=== PATIENT | male | born 1980 | race Caucasian/White ===

== ENCOUNTER 2021-04-14 15:34 | Inpatient (IN) | payer OTHER ==
[2021-04-14 16:56] VITALS: BMI 32.7
[2021-04-14] MEDS ORDERED: NALOXONE (NARCAN) HCL 4 MG/0.1 ML SPRAY NS PRN (18:26)
[2021-04-14] MEDS ORDERED: MAG HYDROX/AL HYDROX/SIMETH 30 ML UNIT-DOSE CUP PO PRN (18:26)
[2021-04-14] MEDS ORDERED: MAGNESIUM HYDROX 2400MG/30ML ORAL SUSPENSION 30 ML CUP PO PRN (18:26)
[2021-04-14] MEDS ORDERED: IBUPROFEN 400 MG TABLET (FP) PO PRN (18:26)
[2021-04-14] MEDS ORDERED: ACETAMINOPHEN 325 MG TABLET (FP) PO PRN ×2 (18:26)
[2021-04-14] MEDS ORDERED: MAGNESIUM CITRATE 300 ML BOTTLE PO PRN (18:26)
[2021-04-14] MEDS ORDERED: MENTHOL/PHENOL 1 EACH UD MM PRN (18:26)
[2021-04-14] MEDS ORDERED: ONDANSETRON *ODT* 4 MG TABLET SL PRN (18:26)
[2021-04-14] MEDS ORDERED: diazePAM 5 MG TABLET PO PRN (18:26)
[2021-04-14] MEDS ORDERED: BISMUTH SUBSALICYLATE 524 MG/30 ML PO PRN (18:26)
[2021-04-14] MEDS ORDERED: METHOCARBAMOL 500 MG TABLET PO PRN (18:26)
[2021-04-14] MEDS ORDERED: methaDONE HCL 10 MG TABLET PO ONE (18:33)
[2021-04-14] MEDS ORDERED: methaDONE HCL 10 MG TABLET ONE (21:36)
[2021-04-14] MEDS ORDERED: methaDONE HCL 40 MG DISPERSABLE TABLET ONE (21:36)
[2021-04-14] MEDS: GABAPENTIN 400 MG CAPSULE PO SCH (21:45)
[2021-04-14] MEDS ORDERED: QUEtiapine FUMARATE 50 MG TABLET PO ONE (22:00)
[2021-04-15] MEDS ORDERED: methaDONE HCL 10 MG TABLET ONE (05:40)
[2021-04-15] MEDS ORDERED: methaDONE HCL 40 MG DISPERSABLE TABLET ONE (05:41)
[2021-04-15] MEDS: GABAPENTIN 400 MG CAPSULE PO SCH ×3 (05:54→22:27)
[2021-04-15] MEDS ORDERED: methaDONE HCL 10 MG TABLET PO SCH (06:00)
[2021-04-15 10:19] LABS: HEMATOCRIT 37.7 % (35.4-49); HEMOGLOBIN 12.7 GM/dL (11.7-16.9); MCH 30.9 pg (25.7-33.7); MCHC 33.6 g/dl (32.0-35.9); MEAN CELL VOLUME 91.8 fl (80-96); MEAN PLT VOLUME 8.6 fl (7.5-11.1); PLATELET COUNT 190 10^3/uL (134-434); RBC 4.11 M/mm3 (4.00-5.60); RDW 14.1 % (11.9-15.9); WHITE BLOOD COUNT 7.7 K/mm3 (4.0-10.0)
[2021-04-15] MEDS: cloNIDine HCL 0.1 MG TABLET PO SCH ×2 (10:39→22:27)
[2021-04-15] MEDS: PRENATAL VITAMINS W/ FOLIC ACID TABLET (FP) PO SCH (10:41)
[2021-04-15] MEDS ORDERED: FLU VACC QS2021-22(6MOS UP)/PF 60 MCG/0.5 ML SYRINGE IM ONE (12:00)
[2021-04-15 12:25] LABS: HIV INTERPRETATION NEGATIVE (NEGATIVE)
[2021-04-15 12:31] LABS: CALCIUM 8.8 mg/dL (8.5-10.1)
[2021-04-15 12:32] LABS: ALBUMIN 3.4 g/dl (3.4-5.0); BLOOD UREA NITROGEN 12.2 mg/dL (7-18)
[2021-04-15 12:35] LABS: BILIRUBIN,TOTAL 0.2 mg/dL (0.2-1); TOT PROT 7.3 g/dl (6.4-8.2)
[2021-04-15] MEDS: diazePAM 5 MG TABLET PO SCH ×4 (13:09→22:27)
[2021-04-15] MEDS: hydrOXYzine PAMOATE 25 MG CAPSULE (FP) PO SCH ×5 (13:43→22:27)
[2021-04-15] MEDS: THIAMINE HCL 100 MG TABLET (FP) PO SCH ×2 (13:44→22:27)
[2021-04-15] MEDS: MELATONIN 5 MG TABLETS PO SCH ×2 (13:45→22:27)
[2021-04-15] MEDS ORDERED: COLLOIDAL OATMEAL 1 BAR EACH TP PRN (15:27)
[2021-04-15] MEDS: NICOTINE 10 MG CARTRIDGE (INHALER) IH PRN (19:06)
[2021-04-15] MEDS: QUEtiapine FUMARATE 100 MG TABLET (FP) PO SCH (22:27)
[2021-04-16] MEDS: hydrOXYzine PAMOATE 25 MG CAPSULE (FP) PO SCH ×5 (06:51→22:34)
[2021-04-16] MEDS: GABAPENTIN 400 MG CAPSULE PO SCH ×3 (06:51→22:34)
[2021-04-16] MEDS: diazePAM 5 MG TABLET PO SCH ×3 (06:52→22:34)
[2021-04-16] MEDS ORDERED: methaDONE HCL 10 MG TABLET ONE (09:01)
[2021-04-16] MEDS ORDERED: methaDONE HCL 40 MG DISPERSABLE TABLET ONE (09:02)
[2021-04-16] MEDS: QUEtiapine FUMARATE 100 MG TABLET (FP) PO SCH ×2 (10:19→22:34)
[2021-04-16] MEDS: PRENATAL VITAMINS W/ FOLIC ACID TABLET (FP) PO SCH (10:19)
[2021-04-16] MEDS: NICOTINE 10 MG CARTRIDGE (INHALER) IH PRN ×2 (10:49→22:38)
[2021-04-16] MEDS: cloNIDine HCL 0.1 MG TABLET PO SCH ×2 (12:27→22:34)
[2021-04-16] MEDS: MELATONIN 5 MG TABLETS PO SCH (22:34)
[2021-04-16] MEDS: THIAMINE HCL 100 MG TABLET (FP) PO SCH (22:34)
[2021-04-17] MEDS: GABAPENTIN 400 MG CAPSULE PO SCH ×3 (06:10→22:46)
[2021-04-17] MEDS: hydrOXYzine PAMOATE 25 MG CAPSULE (FP) PO SCH ×5 (06:10→22:46)
[2021-04-17] MEDS: diazePAM 5 MG TABLET PO SCH ×2 (06:10→17:30)
[2021-04-17] MEDS ORDERED: methaDONE HCL 10 MG TABLET ONE (08:57)
[2021-04-17] MEDS ORDERED: methaDONE HCL 40 MG DISPERSABLE TABLET ONE (08:57)
[2021-04-17] MEDS: QUEtiapine FUMARATE 100 MG TABLET (FP) PO SCH ×2 (10:17→22:46)
[2021-04-17] MEDS: PRENATAL VITAMINS W/ FOLIC ACID TABLET (FP) PO SCH (10:18)
[2021-04-17] MEDS: cloNIDine HCL 0.1 MG TABLET PO SCH ×2 (10:18→22:58)
[2021-04-17] MEDS: NICOTINE 10 MG CARTRIDGE (INHALER) IH PRN (14:21)
[2021-04-17] MEDS: MELATONIN 5 MG TABLETS PO SCH (22:46)
[2021-04-17] MEDS: THIAMINE HCL 100 MG TABLET (FP) PO SCH (22:46)
[2021-04-18] MEDS ORDERED: diazePAM 5 MG TABLET PO ONE (06:00)
[2021-04-18] MEDS: GABAPENTIN 400 MG CAPSULE PO SCH (06:22)
[2021-04-18] MEDS: hydrOXYzine PAMOATE 25 MG CAPSULE (FP) PO SCH ×2 (06:22→10:25)
[2021-04-18] MEDS ORDERED: methaDONE HCL 10 MG TABLET ONE (09:16)
[2021-04-18] MEDS ORDERED: methaDONE HCL 40 MG DISPERSABLE TABLET ONE (09:16)
[2021-04-18 09:19] VITALS: BP 107/53; PULSE 98; TEMP 97.4
[2021-04-18] MEDS: cloNIDine HCL 0.1 MG TABLET PO SCH (10:23)
[2021-04-18] MEDS: PRENATAL VITAMINS W/ FOLIC ACID TABLET (FP) PO SCH (10:23)
[2021-04-18] MEDS: QUEtiapine FUMARATE 100 MG TABLET (FP) PO SCH (10:23)
== END 2021-04-18 10:28 | disposition home or self-care (01) | DRG 897 ==
LOC: YASAS 15:34 → Y3N 04-15 11:35
PROVIDERS: ADMIT Allergy & Immunology; ATTEND Allergy & Immunology
PROC: HZ2ZZZZ Detoxification Services for Substance Abuse Treatment (ICD-10-PCS; principal; 2021-04-15)
DX: F10.230 Alcohol dependence with withdrawal, uncomplicated (principal); F11.20 Opioid dependence, uncomplicated; F13.230 Sedative, hypnotic or anxiolytic dependence with withdrawal, uncomplicated; F17.210 Nicotine dependence, cigarettes, uncomplicated; F43.10 Post-traumatic stress disorder, unspecified; F25.9 Schizoaffective disorder, unspecified; F19.24 Other psychoactive substance dependence with psychoactive substance-induced mood disorder; I10 Essential (primary) hypertension; G47.00 Insomnia, unspecified; B18.2 Chronic viral hepatitis C; G62.9 Polyneuropathy, unspecified; K21.9 Gastro-esophageal reflux disease without esophagitis; M54.50 Low back pain, unspecified; G89.29 Other chronic pain; Z56.0 Unemployment, unspecified
CPT/HCPCS: 36415; 80053; 85027; 86780; 87389; 90686; C9803; G0008; J0735; U0003; U0005

== ENCOUNTER 2021-08-05 18:13 | Inpatient (IN) | payer BC, OTHER ==
[2021-08-05 20:17] VITALS: BMI 30.2
[2021-08-05] MEDS ORDERED: DICYCLOMINE HCL 10 MG CAPSULE PO PRN (20:54)
[2021-08-05] MEDS ORDERED: ONDANSETRON *ODT* 4 MG TABLET SL PRN (20:54)
[2021-08-05] MEDS ORDERED: MELATONIN 5 MG TABLETS PO PRN (20:54)
[2021-08-05] MEDS ORDERED: ACETAMINOPHEN 325 MG TABLET (FP) PO PRN ×2 (20:54)
[2021-08-05] MEDS ORDERED: BISMUTH SUBSALICYLATE 524 MG/30 ML PO PRN (20:54)
[2021-08-05] MEDS ORDERED: MENTHOL/PHENOL 1 EACH UD MM PRN (20:54)
[2021-08-05] MEDS ORDERED: P-EPHED 60MG/TRIPROLIDI 2.5MG TABLET PO PRN (20:54)
[2021-08-05] MEDS ORDERED: IBUPROFEN 400 MG TABLET (FP) PO PRN (20:54)
[2021-08-05] MEDS ORDERED: MAGNESIUM HYDROX 2400MG/30ML ORAL SUSPENSION 30 ML CUP PO PRN (20:54)
[2021-08-05] MEDS ORDERED: MAG HYDROX/AL HYDROX/SIMETH 30 ML UNIT-DOSE CUP PO PRN (20:54)
[2021-08-05] MEDS ORDERED: MAGNESIUM CITRATE 300 ML BOTTLE PO PRN (20:54)
[2021-08-06] MEDS: THIAMINE HCL 100 MG TABLET (FP) PO SCH ×2 (04:16→22:53)
[2021-08-06] MEDS ORDERED: methaDONE HCL 40 MG DISPERSABLE TABLET PO SCH (12:30)
[2021-08-06] MEDS ORDERED: chlordiazePOXIDE HCL 25 MG CAPSULE PO PRN (12:31)
[2021-08-06] MEDS ORDERED: methaDONE HCL 10 MG TABLET ONE (12:49)
[2021-08-06] MEDS ORDERED: methaDONE HCL 40 MG DISPERSABLE TABLET ONE (12:50)
[2021-08-06] MEDS: chlordiazePOXIDE HCL 25 MG CAPSULE PO SCH ×3 (12:52→22:53)
[2021-08-06] MEDS: PRENATAL VITAMINS W/ FOLIC ACID TABLET (FP) PO SCH (12:53)
[2021-08-06 13:55] LABS: HEMATOCRIT 34.1 % (35.4-49); HEMOGLOBIN 11.4 GM/dL (11.7-16.9); MCH 30.1 pg (25.7-33.7); MCHC 33.4 g/dl (32.0-35.9); MEAN PLT VOLUME 9.3 fl (7.5-11.1); PLATELET COUNT 163 10^3/uL (134-434); RBC 3.79 M/mm3 (4.00-5.60); RDW 14.8 % (11.9-15.9); WHITE BLOOD COUNT 7.5 K/mm3 (4.0-10.0)
[2021-08-06 14:44] LABS: ALBUMIN 3.6 g/dl (3.4-5.0); BILIRUBIN,TOTAL 0.4 mg/dL (0.2-1); BLOOD UREA NITROGEN 16.1 mg/dL (7-18); CALCIUM 8.9 mg/dL (8.5-10.1); TOT PROT 6.7 g/dl (6.4-8.2)
[2021-08-06] MEDS: METHOCARBAMOL 500 MG TABLET PO PRN (15:51)
[2021-08-06] MEDS ORDERED: NICOTINE 10 MG CARTRIDGE (INHALER) IH PRN (15:51)
[2021-08-06] MEDS: hydrOXYzine PAMOATE 25 MG CAPSULE (FP) PO PRN (15:51)
[2021-08-06] MEDS ORDERED: QUEtiapine FUMARATE 50 MG TABLET PO ONE (18:21)
[2021-08-07] MEDS ORDERED: methaDONE HCL 40 MG DISPERSABLE TABLET ONE (04:38)
[2021-08-07] MEDS ORDERED: methaDONE HCL 10 MG TABLET ONE (04:38)
[2021-08-07] MEDS ORDERED: chlordiazePOXIDE HCL 10 MG CAPSULE PO SCH (05:00)
[2021-08-07] MEDS: chlordiazePOXIDE HCL 25 MG CAPSULE PO SCH (07:00)
[2021-08-07] MEDS: PRENATAL VITAMINS W/ FOLIC ACID TABLET (FP) PO SCH (10:46)
[2021-08-07] MEDS: chlordiazePOXIDE HCL 10 MG CAPSULE PO SCH ×3 (10:50→23:17)
[2021-08-07] MEDS: cloNIDine HCL 0.1 MG TABLET PO PRN (19:30)
[2021-08-07] MEDS: THIAMINE HCL 100 MG TABLET (FP) PO SCH (23:16)
[2021-08-07] MEDS: QUEtiapine FUMARATE 100 MG TABLET (FP) PO SCH (23:16)
[2021-08-08] MEDS: chlordiazePOXIDE HCL 10 MG CAPSULE PO SCH ×2 (05:46→17:50)
[2021-08-08] MEDS ORDERED: methaDONE HCL 40 MG DISPERSABLE TABLET ONE (09:42)
[2021-08-08] MEDS ORDERED: methaDONE HCL 10 MG TABLET ONE (09:42)
[2021-08-08] MEDS: PRENATAL VITAMINS W/ FOLIC ACID TABLET (FP) PO SCH (10:10)
[2021-08-08] MEDS: cloNIDine HCL 0.1 MG TABLET PO PRN ×2 (10:11→17:52)
[2021-08-08] MEDS: hydrOXYzine PAMOATE 25 MG CAPSULE (FP) PO PRN ×2 (17:51→22:35)
[2021-08-08] MEDS: METHOCARBAMOL 500 MG TABLET PO PRN (17:51)
[2021-08-08] MEDS: QUEtiapine FUMARATE 100 MG TABLET (FP) PO SCH (22:33)
[2021-08-08] MEDS: THIAMINE HCL 100 MG TABLET (FP) PO SCH (23:16)
[2021-08-09] MEDS ORDERED: chlordiazePOXIDE HCL 10 MG CAPSULE PO PRN
[2021-08-09] MEDS ORDERED: chlordiazePOXIDE HCL 10 MG CAPSULE PO ONE (05:00)
[2021-08-09] MEDS: cloNIDine HCL 0.1 MG TABLET PO PRN (06:11)
[2021-08-09] MEDS: METHOCARBAMOL 500 MG TABLET PO PRN (06:12)
[2021-08-09 09:01] VITALS: BP 147/92; PULSE 78; TEMP 97.5
[2021-08-09] MEDS ORDERED: methaDONE HCL 40 MG DISPERSABLE TABLET ONE (09:35)
[2021-08-09] MEDS ORDERED: methaDONE HCL 10 MG TABLET ONE (09:35)
[2021-08-09] MEDS: PRENATAL VITAMINS W/ FOLIC ACID TABLET (FP) PO SCH (10:08)
[2021-08-09] MEDS: hydrOXYzine PAMOATE 25 MG CAPSULE (FP) PO PRN (10:09)
== END 2021-08-09 11:38 | disposition other institution (70) | DRG 897 ==
LOC: YASAS 18:13 → Y6N 08-06 03:31 → UNDOADMIN 08-06 03:31
PROVIDERS: ADMIT Allergy & Immunology; ATTEND Allergy & Immunology
PROC: HZ2ZZZZ Detoxification Services for Substance Abuse Treatment (ICD-10-PCS; principal; 2021-08-06)
DX: F10.230 Alcohol dependence with withdrawal, uncomplicated (principal); F11.20 Opioid dependence, uncomplicated; F13.20 Sedative, hypnotic or anxiolytic dependence, uncomplicated; F14.20 Cocaine dependence, uncomplicated; F19.282 Other psychoactive substance dependence with psychoactive substance-induced sleep disorder; F12.20 Cannabis dependence, uncomplicated; F17.210 Nicotine dependence, cigarettes, uncomplicated; F25.9 Schizoaffective disorder, unspecified; F19.24 Other psychoactive substance dependence with psychoactive substance-induced mood disorder; F41.8 Other specified anxiety disorders; F32.A Depression, unspecified; I10 Essential (primary) hypertension; K21.9 Gastro-esophageal reflux disease without esophagitis; M54.50 Low back pain, unspecified; G89.29 Other chronic pain; Z90.79 Acquired absence of other genital organ(s)
CPT/HCPCS: 36415; 80053; 85027; 86780; C9803; J0735; U0003; U0005

== ENCOUNTER 2021-08-09 12:18 | Inpatient (IN) | payer BC, OTHER ==
[2021-08-09] MEDS ORDERED: LOPERAMIDE HCL 2 MG CAPSULE PO PRN (15:28)
[2021-08-09] MEDS ORDERED: NICOTINE POLACRILEX 2 MG GUM BUC PRN (15:28)
[2021-08-09] MEDS ORDERED: guaiFENesin 200 MG/10 ML 10 ML UNIT-DOSE CUPS PO PRN (15:28)
[2021-08-09] MEDS ORDERED: ACETAMINOPHEN 325 MG TABLET (FP) PO PRN (15:28)
[2021-08-09] MEDS ORDERED: P-EPHED 60MG/TRIPROLIDI 2.5MG TABLET PO PRN (15:28)
[2021-08-09] MEDS ORDERED: MAG HYDROX/AL HYDROX/SIMETH 30 ML UNIT-DOSE CUP PO PRN (15:28)
[2021-08-09] MEDS ORDERED: hydrOXYzine PAMOATE 25 MG CAPSULE (FP) PO PRN (15:28)
[2021-08-09] MEDS ORDERED: MAGNESIUM CITRATE 300 ML BOTTLE PO PRN (15:28)
[2021-08-09] MEDS: IBUPROFEN 400 MG TABLET (FP) PO PRN (18:07)
[2021-08-09] MEDS: THIAMINE HCL 100 MG TABLET (FP) PO SCH (21:34)
[2021-08-09] MEDS: QUEtiapine FUMARATE 100 MG TABLET (FP) PO SCH (21:34)
[2021-08-09] MEDS: cloNIDine HCL 0.1 MG TABLET PO PRN (21:34)
[2021-08-09] MEDS: MELATONIN 5 MG TABLETS PO SCH (21:35)
[2021-08-10] MEDS ORDERED: methaDONE HCL 10 MG TABLET PO SCH (06:00)
[2021-08-10] MEDS ORDERED: methaDONE HCL 40 MG DISPERSABLE TABLET ONE (06:06)
[2021-08-10] MEDS ORDERED: methaDONE HCL 10 MG TABLET ONE (06:06)
[2021-08-10] MEDS: METHOCARBAMOL 500 MG TABLET PO PRN (06:53)
[2021-08-10] MEDS: cloNIDine HCL 0.1 MG TABLET PO PRN ×2 (06:56→21:37)
[2021-08-10] MEDS ORDERED: SODIUM CHLORIDE NASAL SPRAY 44 ML BOTTLE NS PRN (09:52)
[2021-08-10] MEDS: PRENATAL VITAMINS W/ FOLIC ACID TABLET (FP) PO SCH (09:58)
[2021-08-10] MEDS: NICOTINE 10 MG CARTRIDGE (INHALER) IH PRN (12:34)
[2021-08-10] MEDS: QUEtiapine FUMARATE 100 MG TABLET (FP) PO SCH (21:37)
[2021-08-10] MEDS: MELATONIN 5 MG TABLETS PO SCH (21:38)
[2021-08-10] MEDS: THIAMINE HCL 100 MG TABLET (FP) PO SCH (21:38)
[2021-08-11] MEDS: IBUPROFEN 400 MG TABLET (FP) PO PRN (06:36)
[2021-08-11] MEDS: cloNIDine HCL 0.1 MG TABLET PO PRN ×2 (06:36→22:31)
[2021-08-11] MEDS: METHOCARBAMOL 500 MG TABLET PO PRN (06:36)
[2021-08-11] MEDS ORDERED: methaDONE HCL 10 MG TABLET ONE (09:09)
[2021-08-11] MEDS ORDERED: methaDONE HCL 40 MG DISPERSABLE TABLET ONE (09:09)
[2021-08-11] MEDS: PRENATAL VITAMINS W/ FOLIC ACID TABLET (FP) PO SCH (10:11)
[2021-08-11] MEDS ORDERED: COLLOIDAL OATMEAL 1 BAR EACH TP PRN (14:40)
[2021-08-11] MEDS: MINERAL OIL/PETROLAT/WATER TOPICAL CREAM 113 GM JAR TP SCH (16:08)
[2021-08-11] MEDS: MAGNESIUM HYDROX 2400MG/30ML ORAL SUSPENSION 30 ML CUP PO PRN (17:03)
[2021-08-11] MEDS: NICOTINE 10 MG CARTRIDGE (INHALER) IH PRN (17:04)
[2021-08-11] MEDS: DOCUSATE SODIUM 100 MG CAPSULE (FP) PO SCH (21:16)
[2021-08-11] MEDS: THIAMINE HCL 100 MG TABLET (FP) PO SCH (21:17)
[2021-08-11] MEDS: MELATONIN 5 MG TABLETS PO SCH (21:17)
[2021-08-11] MEDS: QUEtiapine FUMARATE 100 MG TABLET (FP) PO SCH (21:17)
[2021-08-12] MEDS: cloNIDine HCL 0.1 MG TABLET PO PRN ×2 (06:39→21:43)
[2021-08-12] MEDS: METHOCARBAMOL 500 MG TABLET PO PRN (06:40)
[2021-08-12] MEDS ORDERED: methaDONE HCL 10 MG TABLET ONE (08:49)
[2021-08-12] MEDS ORDERED: methaDONE HCL 40 MG DISPERSABLE TABLET ONE (08:50)
[2021-08-12] MEDS: MINERAL OIL/PETROLAT/WATER TOPICAL CREAM 113 GM JAR TP SCH (09:45)
[2021-08-12] MEDS: PRENATAL VITAMINS W/ FOLIC ACID TABLET (FP) PO SCH (09:45)
[2021-08-12] MEDS: QUEtiapine FUMARATE 100 MG TABLET (FP) PO SCH (21:43)
[2021-08-12] MEDS: THIAMINE HCL 100 MG TABLET (FP) PO SCH (21:43)
[2021-08-12] MEDS: DOCUSATE SODIUM 100 MG CAPSULE (FP) PO SCH (21:43)
[2021-08-12] MEDS: NICOTINE 10 MG CARTRIDGE (INHALER) IH PRN (21:44)
[2021-08-12] MEDS: MELATONIN 5 MG TABLETS PO SCH (21:44)
[2021-08-13] MEDS ORDERED: methaDONE HCL 10 MG TABLET ONE (09:33)
[2021-08-13] MEDS ORDERED: methaDONE HCL 40 MG DISPERSABLE TABLET ONE (09:34)
[2021-08-13] MEDS: PRENATAL VITAMINS W/ FOLIC ACID TABLET (FP) PO SCH (09:54)
[2021-08-13] MEDS: MINERAL OIL/PETROLAT/WATER TOPICAL CREAM 113 GM JAR TP SCH (09:54)
[2021-08-13] MEDS: NICOTINE 10 MG CARTRIDGE (INHALER) IH PRN ×2 (09:59→21:06)
[2021-08-13] MEDS: MAGNESIUM HYDROX 2400MG/30ML ORAL SUSPENSION 30 ML CUP PO PRN (09:59)
[2021-08-13] MEDS: cloNIDine HCL 0.1 MG TABLET PO PRN ×2 (12:33→21:08)
[2021-08-13] MEDS: DOCUSATE SODIUM 100 MG CAPSULE (FP) PO SCH (21:05)
[2021-08-13] MEDS: THIAMINE HCL 100 MG TABLET (FP) PO SCH (21:06)
[2021-08-13] MEDS: QUEtiapine FUMARATE 100 MG TABLET (FP) PO SCH (21:06)
[2021-08-13] MEDS: MELATONIN 5 MG TABLETS PO SCH (21:06)
[2021-08-14] MEDS ORDERED: methaDONE HCL 10 MG TABLET ONE (08:57)
[2021-08-14] MEDS ORDERED: methaDONE HCL 40 MG DISPERSABLE TABLET ONE (08:57)
[2021-08-14] MEDS: PRENATAL VITAMINS W/ FOLIC ACID TABLET (FP) PO SCH (09:54)
[2021-08-14] MEDS: MINERAL OIL/PETROLAT/WATER TOPICAL CREAM 113 GM JAR TP SCH (09:55)
[2021-08-14] MEDS: MAGNESIUM HYDROX 2400MG/30ML ORAL SUSPENSION 30 ML CUP PO PRN (09:56)
[2021-08-14] MEDS: cloNIDine HCL 0.1 MG TABLET PO PRN ×2 (13:33→21:29)
[2021-08-14] MEDS: THIAMINE HCL 100 MG TABLET (FP) PO SCH (21:26)
[2021-08-14] MEDS: QUEtiapine FUMARATE 100 MG TABLET (FP) PO SCH (21:26)
[2021-08-14] MEDS: DOCUSATE SODIUM 100 MG CAPSULE (FP) PO SCH (21:26)
[2021-08-14] MEDS: MELATONIN 5 MG TABLETS PO SCH (21:26)
[2021-08-14] MEDS: NICOTINE 10 MG CARTRIDGE (INHALER) IH PRN (21:28)
[2021-08-15] MEDS: METHOCARBAMOL 500 MG TABLET PO PRN (01:33)
[2021-08-15] MEDS: IBUPROFEN 400 MG TABLET (FP) PO PRN (01:33)
[2021-08-15 06:35] VITALS: TEMP 97.3
[2021-08-15] MEDS ORDERED: methaDONE HCL 10 MG TABLET ONE (08:53)
[2021-08-15] MEDS ORDERED: methaDONE HCL 40 MG DISPERSABLE TABLET ONE (08:54)
[2021-08-15] MEDS: MAGNESIUM HYDROX 2400MG/30ML ORAL SUSPENSION 30 ML CUP PO PRN (10:23)
[2021-08-15] MEDS: PRENATAL VITAMINS W/ FOLIC ACID TABLET (FP) PO SCH (10:24)
[2021-08-15] MEDS: MINERAL OIL/PETROLAT/WATER TOPICAL CREAM 113 GM JAR TP SCH (10:24)
[2021-08-15 16:41] VITALS: BP 132/77; PULSE 93
[2021-08-16] MEDS: THIAMINE HCL 100 MG TABLET (FP) PO SCH (00:07)
[2021-08-16] MEDS: DOCUSATE SODIUM 100 MG CAPSULE (FP) PO SCH (00:07)
[2021-08-16] MEDS: MELATONIN 5 MG TABLETS PO SCH (00:07)
[2021-08-16] MEDS: QUEtiapine FUMARATE 100 MG TABLET (FP) PO SCH (00:07)
[2021-08-16] MEDS: PRENATAL VITAMINS W/ FOLIC ACID TABLET (FP) PO SCH (10:32)
[2021-08-16] MEDS: MINERAL OIL/PETROLAT/WATER TOPICAL CREAM 113 GM JAR TP SCH (10:32)
== END 2021-08-16 10:30 | disposition short-term general hospital (02) | DRG 895 ==
LOC: YASAS 12:18 → Y3E 12:19
PROVIDERS: ADMIT Allergy & Immunology; ATTEND Allergy & Immunology
PROC: HZ42ZZZ Group Counseling for Substance Abuse Treatment, Cognitive-Behavioral (ICD-10-PCS; principal; 2021-08-09)
DX: F10.20 Alcohol dependence, uncomplicated (principal); F11.20 Opioid dependence, uncomplicated; F13.20 Sedative, hypnotic or anxiolytic dependence, uncomplicated; F12.20 Cannabis dependence, uncomplicated; F17.210 Nicotine dependence, cigarettes, uncomplicated; R10.11 Right upper quadrant pain; B18.2 Chronic viral hepatitis C; K59.03 Drug induced constipation; Z85.028 Personal history of other malignant neoplasm of stomach; Z85.47 Personal history of malignant neoplasm of testis
CPT/HCPCS: J0735

== ENCOUNTER 2021-08-15 18:44 | Observation (INO) | payer BC, OTHER ==
[2021-08-15] MEDS ORDERED: ACETAMINOPHEN 1000 MG/100 ML BAG IVPB ONE (21:08)
[2021-08-15] MEDS ORDERED: SODIUM CHLORIDE 0.9% 500 ML INFUS.BAG IV ONE (21:08)
[2021-08-15] MEDS ORDERED: FAMOTIDINE 20 MG/50 ML IVPB 20 MG/50 ML MG IVPB ONE (21:44)
[2021-08-15] MEDS ORDERED: ACETAMINOPHEN INJECTION 100 ML IVPB ONE (21:46)
[2021-08-15 23:30] LABS: CHLORIDE 101 mmol/L (98-107); SODIUM 138 mmol/L (136-145)
[2021-08-15 23:32] LABS: CALCIUM 9.1 mg/dL (8.5-10.1)
[2021-08-15 23:33] LABS: ALBUMIN 3.8 g/dl (3.4-5.0); BLOOD UREA NITROGEN 14.1 mg/dL (7-18); CO2 31 mmol/L (21-32); GLUCOSE,RANDOM 85 mg/dL (74-106); LIPASE 11 U/L (73-393)
[2021-08-15 23:35] LABS: SGPT/ALT 23 U/L (13-61)
[2021-08-15 23:36] LABS: CREATININE 0.9 mg/dL (0.55-1.3); SGOT/AST 50 U/L (15-37)
[2021-08-15 23:37] LABS: BILIRUBIN,TOTAL 0.8 mg/dL (0.2-1)
[2021-08-15 23:38] LABS: ALK PHOS 93 U/L (45-117); ANION GAP 5 MMOL/L (8-16); TOT PROT 7.9 g/dl (6.4-8.2)
[2021-08-16 00:22] LABS: BASO % 0.3 % (0-2.0); EOS % 0.4 % (0-4.5); HEMATOCRIT 34.8 % (35.4-49); HEMOGLOBIN 11.7 GM/dL (11.7-16.9); LYMPH % 30.5 % (8-40); MCH 30.2 pg (25.7-33.7); MCHC 33.7 g/dl (32.0-35.9); MEAN CELL VOLUME 89.5 fl (80-96); MEAN PLT VOLUME 8.7 fl (7.5-11.1); MONO % 6.1 % (3.8-10.2); NEUT % 62.7 % (42.8-82.8); PLATELET COUNT 190 10^3/uL (134-434); RBC 3.89 M/mm3 (4.00-5.60); WHITE BLOOD COUNT 8.3 K/mm3 (4.0-10.0)
[2021-08-16] MEDS ORDERED: FAMOTIDINE 20 MG/50 ML IVPB 20 MG/50 ML MG IVPB ONE (01:55)
[2021-08-16 02:09] LABS: INR 1.05 (0.83-1.09); PROTHROMBIN TIME (PATIENT) 12.1 SEC (9.7-13.0)
[2021-08-16 02:16] LABS: CALCIUM 9.3 mg/dL (8.5-10.1)
[2021-08-16 02:17] LABS: BLOOD UREA NITROGEN 12.6 mg/dL (7-18)
[2021-08-16 02:20] LABS: CREATININE 0.9 mg/dL (0.55-1.3)
[2021-08-16] MEDS ORDERED: QUEtiapine FUMARATE 100 MG TABLET (FP) PO ONE (04:04)
[2021-08-16] MEDS ORDERED: QUEtiapine FUMARATE 100 MG TABLET (FP) ONE ×2 (05:26→09:38)
[2021-08-16] MEDS ORDERED: KETOROLAC TROMETHAMINE 15 MG/ML VIAL IVPUSH ONE ×2 (06:23→22:10)
[2021-08-16] MEDS ORDERED: KETOROLAC TROMETHAMINE 15 MG/ML VIAL ONE (06:32)
[2021-08-16] MEDS ORDERED: methaDONE HCL 10 MG TABLET PO SCH (08:45)
[2021-08-16] MEDS ORDERED: SENNOSIDES 8.6MG TABLET (FP) PO ONE (09:38)
[2021-08-16] MEDS ORDERED: POLYETHYLENE GLYCOL (HEALTHYLAX) 3350 17 GM PACKET ONE (09:38)
[2021-08-16] MEDS ORDERED: SIMETHICONE 40 MG/0.6 ML BOTTLE PO ONE (10:00)
[2021-08-16] MEDS ORDERED: QUEtiapine FUMARATE 100 MG TABLET (FP) PO SCH (10:00)
[2021-08-16 11:10] VITALS: BMI 31.4
[2021-08-16] MEDS ORDERED: DOCUSATE SODIUM 100 MG CAPSULE (FP) PO PRN (11:22)
[2021-08-16] MEDS ORDERED: methaDONE HCL 10 MG TABLET ONE (11:37)
[2021-08-16] MEDS ORDERED: methaDONE HCL 40 MG DISPERSABLE TABLET ONE (11:37)
[2021-08-16] MEDS: POLYETHYLENE GLYCOL (HEALTHYLAX) 3350 17 GM PACKET PO SCH ×2 (11:45→21:03)
[2021-08-16] MEDS: NICOTINE 14 MG/24 HOURS TOPICAL PATCH TD SCH (11:46)
[2021-08-16] MEDS: SENNOSIDES 8.6MG TABLET (FP) PO SCH ×2 (11:46→21:04)
[2021-08-16] MEDS: ENOXAPARIN NA (PORCINE) 40 MG/0.4 ML DISP.SYRIN SQ SCH (12:29)
[2021-08-16] MEDS ORDERED: ACETAMINOPHEN 1000 MG/100 ML BAG IVPB PRN (13:43)
[2021-08-16] MEDS ORDERED: ZOLPIDEM TARTRATE 5 MG TABLET PO PRN (18:49)
[2021-08-16] MEDS: THIAMINE HCL 100 MG TABLET (FP) PO SCH (21:04)
[2021-08-16 21:27] LABS: URINE APPEARANCE CLEAR; URINE BILIRUBIN NEGATIVE (NEGATIVE); URINE COLOR YELLOW; URINE GLUCOSE (UA) NEGATIVE (NEGATIVE); URINE KETONE NEGATIVE (NEGATIVE); URINE LEUK ESTERASE NEGATIVE (NEGATIVE); URINE NITRITE NEGATIVE (NEGATIVE); URINE PROTEIN NEGATIVE (NEGATIVE); URINE UROBILINOGEN 0.2 mg/dL (0.2-1.0)
[2021-08-17] MEDS ORDERED: methaDONE HCL 40 MG DISPERSABLE TABLET ONE (10:00)
[2021-08-17] MEDS ORDERED: methaDONE HCL 10 MG TABLET ONE (10:00)
[2021-08-17] MEDS ORDERED: MULTIVITAMINS (DAILY MVI) TABLET (FP) PO SCH (10:00)
[2021-08-17] MEDS: ENOXAPARIN NA (PORCINE) 40 MG/0.4 ML DISP.SYRIN SQ SCH (10:48)
[2021-08-17] MEDS: NICOTINE 14 MG/24 HOURS TOPICAL PATCH TD SCH (10:48)
[2021-08-17] MEDS: SENNOSIDES 8.6MG TABLET (FP) PO SCH (10:48)
[2021-08-17] MEDS: POLYETHYLENE GLYCOL (HEALTHYLAX) 3350 17 GM PACKET PO SCH (10:48)
[2021-08-17] MEDS: THIAMINE HCL 100 MG TABLET (FP) PO SCH (10:48)
[2021-08-17 13:36] VITALS: BP 147/96; PULSE 98; TEMP 98.2
== END 2021-08-17 13:37 | disposition home or self-care (01) ==
LOC: JER 18:44 → JERBED 08-16 07:46 → J6S 08-16 10:33
PROVIDERS: ADMIT Internal Medicine; ATTEND Nurse Practitioner Family
PROC: 3E033GC Introduction of Other Therapeutic Substance into Peripheral Vein, Percutaneous Approach (ICD-10-PCS; principal; 2021-08-16)
PROC: 3E033NZ Introduction of Analgesics, Hypnotics, Sedatives into Peripheral Vein, Percutaneous Approach (ICD-10-PCS; 2021-08-16)
PROC: 3E0337Z Introduction of Electrolytic and Water Balance Substance into Peripheral Vein, Percutaneous Approach (ICD-10-PCS; 2021-08-16)
DX: I10 Essential (primary) hypertension (principal); F19.10 Other psychoactive substance abuse, uncomplicated; I45.81 Long QT syndrome; Z29.9 Encounter for prophylactic measures, unspecified
CPT/HCPCS: 36415; 74177-TC; 80048; 80053; 81003; 82105; 83605; 83615; 83690; 84484; 84702; 85025; 85610; 85730; 93005; 93010; 94010; 96365; 96375; 96376; 99285-25; C9803; G0378; U0003; U0005